=== PATIENT | male | born 1995 | race African-American/Black ===

== ENCOUNTER 2018-06-25 03:04 | Emergency (ER) | payer MEDICAID ==
[~2018-06-25] VITALS: Ht 177.8 cm; Wt 81.6 kg
[2018-06-25 03:12] VITALS: BP 109/71
[2018-06-25] MEDS ORDERED: IBUPROFEN 800 MG TAB PO ONE (06:30)
== END 2018-06-25 06:44 | disposition home or self-care (01) ==
LOC: ER 03:04
DX: S62.304A Unspecified fracture of fourth metacarpal bone, right hand, initial encounter for closed fracture (principal); W52.XXXA Crushed, pushed or stepped on by crowd or human stampede, initial encounter; Y93.89 Activity, other specified; Y92.89 Other specified places as the place of occurrence of the external cause; Y99.8 Other external cause status
CPT/HCPCS: 29125; 73130